=== PATIENT | female | born 1995 | race Caucasian/White ===

== ENCOUNTER 2017-06-08 20:48 | Emergency (ER) | payer OTHER ==
[~2017-06-08] VITALS: Ht 170.2 cm; Wt 56.7 kg
[2017-06-08 20:58] VITALS: BP 119/74
[2017-06-08] MEDS ORDERED: Tetanus/Diptheria/Pertussis Vaccine 0.5ml Syr IM ONE (21:15)
--- NOTE | 2017-06-08 21:42 | Emergency Room Report ---
History of Present Illness General Chief Complaint: Laceration Source: Patient Present Illness HPI Is a 21-year-old female who is right-hand dominant. She presents with a laceration to her right third finger. This occurred at work. She was opening beer bottle in the opening of the bottle broken and sustained a laceration to her finger. This was a skin avulsion. Bleeding not stopping. No other injury. Pain is 5 out of 10. Allergies: Coded Allergies: No Known Allergies (Unverified , 06/08/17) Patient History Past Medical History: see triage record, old chart reviewed Past Surgical History: none Pertinent Family History: none Social History: Denies: smoking Last Menstrual Period: 2 months ago Now: No Immunizations: other Reviewed Nursing Documentation: PMH: Agreed, PSxH: Agreed Review of Systems Eye: Denies: eye pain, blurred vision ENT: Denies: ear pain, nose congestion, throat swelling Respiratory: Denies: cough, shortness of breath Cardiovascular: Denies: chest pain, palpitations Gastrointestinal: Denies: abdominal pain, diarrhea, nausea, vomiting Musculoskeletal: Denies: back pain, joint pain Skin: Denies: rash Neurological: Denies: headache, numbness Endocrine: Denies: increased thirst, increased urine Hematologic/Lymphatic: Denies: easy bruising All Other Systems: negative except mentioned in HPI Physical Exam Vital Signs Date Time Temp Pulse Resp B/P (MAP) Pulse Ox O2 Delivery O2 Flow Rate FiO2 06/08/17 20:53 97.5 109 18 119/74 99 Room Air 97.5 vitals normal Sp02 EP Interpretation: reviewed, normal General Appearance: well appearing, no apparent distress, alert Head: normocephalic, atraumatic Eyes: bilateral eye PERRL, bilateral eye EOMI ENT: hearing grossly normal, normal pharynx Neck: full range of motion, supple, no meningismus Respiratory: chest non-tender, lungs clear, normal breath sounds Cardiovascular #1: regular rate, rhythm, no murmur Gastrointestinal: normal bowel sounds, non tender, no mass, no organomegaly, no bruit, non-distended Musculoskeletal: back normal, gait/station normal, normal range of motion, other - Right third finger: At the tip near the pad there is a skin avulsion a 1 cm. Actively oozing of blood. Full range of motion of the MCP, PIP, DIP joint. Sensation normal. No foreign body. No tendon laceration. Psychiatric: mood/affect normal Skin: warm/dry Procedures Laceration/Wound Repair Laceration/Wound Repair : Consent: Verbal Wound Location: upper extremity Wound's Depth, Shape: superficial Wound Length (cm): 1 Wound Explored: clean Irrigated w/ Saline (ccs): 500 Betadine Prep?: Yes Anesthesia: 1% Lidocaine Volume Anesthetic (ccs): 1 Wound Repaired With: sutures Suture Size/Type: 5:0, proline Number of Sutures: 3 Patient Tolerated: Well Complications: None Medical Decision Making Diagnostic Impression: Primary Impression: Finger laceration Qualified Codes: S61.212A - Laceration without foreign body of right middle finger without damage to nail, initial encounter ER Course Patient with a skin avulsion and finger laceration. No foreign body. No tendon laceration. Last Vital Signs Date Time Temp Pulse Resp B/P (MAP) Pulse Ox O2 Delivery O2 Flow Rate FiO2 06/08/17 20:53 97.5 109 18 119/74 99 Room Air 97.5 Status: improved Disposition: HOME, SELF-CARE Condition: Stable Patient Instructions: Laceration Care, Adult Additional Instructions: Follow-up with workman's comp doctor within 7 days for suture removal. Return if symptom worsen. KATIE CALLEJAS M.D. Jun 08, 2017 21:41
[2017-06-08 21:50] VITALS: BP 119/74
== END 2017-06-08 21:50 | disposition home or self-care (01) ==
LOC: EMR 21:39
DX: S61.212A Laceration without foreign body of right middle finger without damage to nail, initial encounter (principal); W25.XXXA Contact with sharp glass, initial encounter; Y93.9 Activity, unspecified; Y99.0 Civilian activity done for income or pay; Z23 Encounter for immunization
CPT/HCPCS: 90471; 90715; 99284

== ENCOUNTER 2017-06-14 12:07 | Emergency (ER) | payer OTHER ==
[~2017-06-14] VITALS: Ht 170.2 cm; Wt 56.7 kg
--- NOTE | 2017-06-14 12:46 | Emergency Room Report ---
History of Present Illness General Chief Complaint: Wound Recheck/Suture Removal Source: Patient Present Illness HPI 21 yo female patient presents to ER complaining of middle finger pain s/p sutures placed at [facility] 6 days ago. Reports skin around finger looks infected. Reports not taking any abx currently. Reports received tetanus shot. Denies fever, chest pain, SOB. Reports pain with movement of finger. Patient reports right hand dominant. Allergies: Coded Allergies: No Known Allergies (Unverified , 06/08/17) Patient History Past Medical History: see triage record Last Menstrual Period: 06/12/17 Reviewed Nursing Documentation: PMH: Agreed; PSxH: Agreed Nursing Documentation-PMH Past Medical History: No Stated History Review of Systems All Other Systems: negative except mentioned in HPI Physical Exam Vital Signs Date Time Temp Pulse Resp B/P (MAP) Pulse Ox O2 Delivery O2 Flow Rate FiO2 06/14/17 12:36 98.4 94 16 128/82 99 Room Air 98.4 Sp02 EP Interpretation: reviewed, normal General Appearance: well appearing, no apparent distress, alert, GCS 15, non- toxic Head: normocephalic, atraumatic Eyes: bilateral eye normal inspection, bilateral eye PERRL ENT: hearing grossly normal, normal pharynx, no angioedema, normal voice, uvula midline, moist mucus membranes Neck: full range of motion Respiratory: lungs clear, normal breath sounds, no rhonchi, no respiratory distress, no accessory muscle use, no wheezing, speaking full sentences Cardiovascular #1: regular rate, rhythm, no edema Musculoskeletal: back normal, digits/nails normal, gait/station normal, normal range of motion, non-tender Neurologic: alert, oriented x3, responsive, motor strength/tone normal, sensory intact Psychiatric: mood/affect normal Skin: laceration - right middle finegr, palmar side, distal phalanx, scabbing present, surrounding erythema and edema, no active drainage, 3 sutures placed Lymphatic: no adenopathy Medical Decision Making PA Attestation Dr. Laguna is my supervising Physician whom patient management has been discussed with. Diagnostic Impression: Primary Impression: Encounter for wound re-check ER Course Pt. presents to the ED c/o redness and inflammation at suture site. Ddx considered but are not limited to contusion, cellulitis, flexor tenosynovitis. Vital signs: are WNL, pt. is afebrile Ordered X-ray and pain medication. ER COURSE PE shows surrounding erythema and edema of previous laceration and suture site, no active drainage. Patient does not have fusiform swelling, pain with extension, TTP along flexor tendon, low suspicion for flexor tenosynovitis. Will treat with abx outpatient. Will not remove sutures at this time. Followup with primary care provider for wound check in 2 -3 days. Work note provided. Put ice on wound for swelling symptoms. Seen and evaluated by Dr. Laguna who agrees with treatment and plan. DISCHARGE: -Rx provided for Bactrim to cover for MRSA Rx provided for Keflex Rx provided for Tylenol for pain symptoms. At this time pt. is stable for d/c to home. Patient is resting comfortably, in no acute distress, nontoxic appearing, talking without difficulty. Will provide printed patient care instructions, and any necessary prescriptions. Patient instructed to follow with primary care provider in 2-3 days. Care plan and follow up instructions have been discussed with the patient prior to discharge. Patient instructed on RICE method: rest, ice, compression, elevation. Patient instructed to WBAT Take medications as directed. Patient questions asked and answered. Patient reports understanding and agreement to treatment plan. ER precautions given, patient instructed to return to ER immediately for any new or worsening of symptoms. Last Vital Signs Date Time Temp Pulse Resp B/P (MAP) Pulse Ox O2 Delivery O2 Flow Rate FiO2 06/14/17 12:36 98.4 94 16 128/82 99 Room Air 98.4 Disposition: HOME, SELF-CARE Condition: Stable Scripts Acetaminophen* (TYLENOL EXTRA STRENGTH*) 500 Mg Tablet 500 MG ORAL Q8H PRN for Prn Headache/Temp > 101, #30 TAB 0 Refills Prov: Fran Lyn P.A. 06/14/17 Trimethoprim/Sulfamethoxazole 160/800* (BACTRIM DS TABLET*) 1 Each Tablet 1 TAB ORAL TWICE A DAY for 7 Days, #14 TAB Prov: Fran Lyn.A. 06/14/17 Cephalexin* (KEFLEX*) 500 Mg Capsule 500 MG ORAL EVERY 12 HOURS, #14 CAP 0 Refills Prov: Fran Lyn.A. 06/14/17 Patient Instructions: Cellulitis, [id number], Wound Check Additional Instructions: Followup with primary care provider in 2-3 days for wound check and suture removal. Take medications as directed. Patient questions asked and answered. ER precautions given, patient instructed to return to ER immediately for any new or worsening of symptoms worsening of finger swelling and pain, fever, intractable vomiting. Fran Lyn Jun 14, 2017 12:46
[2017-06-14 12:55] VITALS: BP 128/82
[2017-06-14] MEDS ORDERED: BACTRIM DS TAB1 EAC1 ORAL (12:56)
[2017-06-14] MEDS ORDERED: CEPHALEXIN500 MG ORAL (12:56)
[2017-06-14] MEDS ORDERED: TYLENOL EXTRA500 MG ORAL (12:58)
[2017-06-14 13:00] VITALS: BP 113/87
== END 2017-06-14 13:35 | disposition home or self-care (01) ==
LOC: EMR 12:45
DX: S61.212D Laceration without foreign body of right middle finger without damage to nail, subsequent encounter (principal); X58.XXXD Exposure to other specified factors, subsequent encounter
CPT/HCPCS: 99284